=== PATIENT | female | born 2000 | race Caucasian/White ===

== ENCOUNTER 2022-05-08 14:17 | Emergency (ER) | payer OTHER ==
[2022-05-08 14:22] VITALS: BP 141/92; PULSE 90; RESP 18; TEMP 98.1; BMI 30.9
[2022-05-08] MEDS ORDERED: ACETAMINOPHEN 500 MG TABLET (FP) PO ONE (16:18)
[2022-05-08] MEDS ORDERED: DIPHTH,PERTUSS(ACELL),TET 0.5 ML DISP.SYRIN IM ONE ×2 (16:19)
[2022-05-08] MEDS ORDERED: ACETAMINOPHEN 500 MG TABLET (FP) ONE (16:19)
== END 2022-05-08 17:30 | disposition short-term general hospital (02) ==
LOC: JERFT 14:17
PROC: 3E0234Z Introduction of Serum, Toxoid and Vaccine into Muscle, Percutaneous Approach (ICD-10-PCS; principal; 2022-05-08)
DX: S61.112A Laceration without foreign body of left thumb with damage to nail, initial encounter (principal); W26.0XXA Contact with knife, initial encounter
CPT/HCPCS: 90715; 99285-25